=== PATIENT | male | born 1930 | race Asian ===

== ENCOUNTER 2017-08-15 09:24 | Inpatient (IN) | payer OTHER ==
[~2017-08-15] VITALS: Ht 152.4 cm; Wt 61.3 kg
[~2017-08-15 09:24] MED LIST: CARVEDILOL6.25 M1 PO; CLEOCIN HCL300 MG PO; CLINDAMYCIN HC300 MG PO; COR3 PO; COZ25 PO; DUONEB HHN; ECO81 PO; FERROUS SULFAT325 M2 PO; GLIPIZIDE2.5 M1 PO; GLU500 PO; GLUCOTROL5 MG PO; K10 PO; L40 PO; LAC PO; LANTUS SOLOS100 U/M1 SC; LEVAQUIN750 MG PO; LEVEMIR100 U/M1 SC; NOR5 PO; WELCHOL625 MG PO; ZOC20 PO
[2017-08-15 09:52] VITALS: Ht 152.4 cm; Wt 61.3 kg
[2017-08-15 10:29] LABS: BASOPHIL % 0.1 % (0-2); PLATELET COUNT 218 x10^3mcL (130-400)
[2017-08-15 10:32] LABS: RED CELL DISTRIBUTION WIDTH 16.2 % (11.5-14.5)
[2017-08-15 10:38] LABS: CARBON DIOXIDE 20.4 mmol/L (21-32); CHLORIDE SERUM 104 mmol/L (98-107); CREATININE SERUM 1.6 mg/dL (0.7-1.3); GLUCOSE SERUM 86 mg/dL (74-106); POTASSIUM SERUM 4.5 mmol/L (3.5-5.1); SODIUM SERUM 136 mmol/L (136-145)
[2017-08-15 10:43] LABS: ALKALINE PHOSPHATASE 79 U/L (46-116); ALT/SGPT 37 U/L (16-63); AST/SGOT 24 U/L (15-37); BILIRUBIN TOTAL 0.3 mg/dL (0.20-1.00); TOTAL PROTEIN, SERUM 7.3 g/dL (6.4-8.2)
[2017-08-15 10:44] LABS: ALBUMIN 2.9 g/dL (3.4-5.0)
[2017-08-15 13:02] LABS: T3 TOTAL 0.55 ng/mL
[2017-08-15 13:18] LABS: PHOSPHOROUS 3.1 mg/dL (2.5-4.9)
[2017-08-15 13:29] LABS: CHOLESTEROL/HDL RATIO 2.6
[2017-08-15 13:31] LABS: FREE T4 1.15 ng/dL (0.76-1.46)
[2017-08-15 13:37] LABS: FREE THYROXINE INDEX 1.6 ug/dL (1.4-4.5); T4(THYROXINE) 4.2 ug/dL (4.7-13.3)
[2017-08-15 13:55] VITALS: BP 115/59
[2017-08-15 17:50] VITALS: BP 107/49
[2017-08-15 18:24] VITALS: BP 115/59
[2017-08-15 21:05] VITALS: BP 101/43
[2017-08-16 06:21] VITALS: BP 96/52
[2017-08-16 06:29] LABS: CALCIUM 7.4 mg/dL (8.5-10.1); CARBON DIOXIDE 19.2 mmol/L (21-32); CHLORIDE SERUM 107 mmol/L (98-107); CREATININE SERUM 1.3 mg/dL (0.7-1.3); GLUCOSE SERUM 77 mg/dL (74-106); MAGNESIUM 1.8 mg/dL (1.8-2.4); PHOSPHOROUS 2.8 mg/dL (2.5-4.9); POTASSIUM SERUM 3.6 mmol/L (3.5-5.1); SODIUM SERUM 139 mmol/L (136-145)
[2017-08-16 06:35] LABS: BASOPHIL % 0.1 % (0-2); PLATELET COUNT 169 x10^3mcL (130-400)
[2017-08-16 06:53] LABS: RED CELL DISTRIBUTION WIDTH 15.9 % (11.5-14.5)
[2017-08-16 10:02] VITALS: BP 108/50
[2017-08-16] MEDS ORDERED: ZOFRAN8 MG PO (14:16)
[2017-08-16 14:27] VITALS: BP 98/47
[2017-08-16 15:35] VITALS: BP 102/57
== END 2017-08-16 17:58 | disposition home health service (06) | DRG 73 ==
LOC: ED 09:24 → DU 11:34
PROVIDERS: Emergency Medicine; Family Medicine Sports Medicine
DX: G90.9 Disorder of the autonomic nervous system, unspecified (principal); N17.0 Acute kidney failure with tubular necrosis; I42.2 Other hypertrophic cardiomyopathy; I10 Essential (primary) hypertension; Z95.1 Presence of aortocoronary bypass graft; E78.00 Pure hypercholesterolemia, unspecified; E86.0 Dehydration; I25.10 Atherosclerotic heart disease of native coronary artery without angina pectoris; G90.8 Other disorders of autonomic nervous system; E11.65 Type 2 diabetes mellitus with hyperglycemia; E11.51 Type 2 diabetes mellitus with diabetic peripheral angiopathy without gangrene; R22.1 Localized swelling, mass and lump, neck; E83.51 Hypocalcemia; I34.1 Nonrheumatic mitral (valve) prolapse; I34.0 Nonrheumatic mitral (valve) insufficiency
CPT/HCPCS: 82962; 83880; 84439; 97110-GP; J1956; J2543; J3490; J7030; J7620; Q0092

== ENCOUNTER 2019-05-10 19:11 | Inpatient (IN) | payer OTHER ==
[~2019-05-10] VITALS: Ht 152.4 cm; Wt 67.3 kg
[~2019-05-10 19:11] MED LIST changes: +ZOFRAN8 MG PO
[2019-05-10 19:19] VITALS: Ht 152.4 cm; Wt 67.3 kg
[2019-05-10 20:07] LABS: BASOPHIL % 0.5 % (0-2); PLATELET COUNT 216 x10^3mcL (130-400); RED CELL DISTRIBUTION WIDTH 14.7 % (11.5-14.5)
[2019-05-10 21:13] LABS: ALKALINE PHOSPHATASE 97 U/L (46-116); ALT/SGPT 32 U/L (16-63); AST/SGOT 31 U/L (15-37); BILIRUBIN TOTAL 0.4 mg/dL (0.20-1.00); CALCIUM 8.7 mg/dL (8.5-10.1); CARBON DIOXIDE 24.3 mmol/L (21-32); CHLORIDE SERUM 104 mmol/L (98-107); CREATININE SERUM 1.3 mg/dL (0.7-1.3); GLUCOSE SERUM 165 mg/dL (74-106); POTASSIUM SERUM 4.5 mmol/L (3.5-5.1); SODIUM SERUM 138 mmol/L (136-145); TOTAL PROTEIN, SERUM 7.8 g/dL (6.4-8.2)
[2019-05-10 21:14] LABS: ALBUMIN 3.3 g/dL (3.4-5.0); CHOLESTEROL 111 mg/dL (<200)
[2019-05-10] MEDS ORDERED: NOR10 PO (23:13)
[2019-05-10] MEDS ORDERED: FUROSEMIDE40 MG PO (23:13)
[2019-05-10] MEDS ORDERED: GOOD SENSE ASPI81 M3 PO (23:14)
[2019-05-10] MEDS ORDERED: KLOR-CON M1010 MEQ PO (23:14)
[2019-05-10] MEDS ORDERED: CARVEDILOL6.25 M1 PO (23:14)
[2019-05-10] MEDS ORDERED: GLUCOTROL5 MG PO (23:14)
[2019-05-10] MEDS ORDERED: METFORMIN HYDR500 M1 PO (23:15)
[2019-05-10] MEDS ORDERED: SIMVASTATIN20 M1 PO (23:15)
[2019-05-10] MEDS ORDERED: WELCHOL625 MG PO (23:15)
[2019-05-10] MEDS ORDERED: LOSARTAN POTASS25 M1 PO (23:15)
[2019-05-10] MEDS ORDERED: PROS INH (23:16)
[2019-05-11 00:48] LABS: UA SPECIFIC GRAVITY 1.015 (1.005-1.035); microscopic required? YES; urine erythrocyte TRACE (NEGATIVE)
[2019-05-11 00:52] LABS: CHOLESTEROL/HDL RATIO 3.5
[2019-05-11 02:24] VITALS: BP 124/47
[2019-05-11 04:33] VITALS: BP 116/55
[2019-05-11 05:00] VITALS: BP 140/63
[2019-05-11 06:25] LABS: T3 TOTAL 0.74 ng/mL
[2019-05-11 06:26] LABS: FREE T4 1.07 ng/dL (0.76-1.46); FREE THYROXINE INDEX 2.4 ug/dL (1.4-4.5); T4(THYROXINE) 6.2 ug/dL (4.7-13.3)
[2019-05-11 06:36] LABS: CALCIUM 8.5 mg/dL (8.5-10.1); CARBON DIOXIDE 29.4 mmol/L (21-32); CHLORIDE SERUM 104 mmol/L (98-107); CREATININE SERUM 1.1 mg/dL (0.7-1.3); GLUCOSE SERUM 68 mg/dL (74-106); MAGNESIUM 1.9 mg/dL (1.8-2.4); PHOSPHOROUS 3.9 mg/dL (2.5-4.9); POTASSIUM SERUM 3.6 mmol/L (3.5-5.1); SODIUM SERUM 142 mmol/L (136-145)
[2019-05-11 06:39] LABS: BASOPHIL % 0.3 % (0-2); PLATELET COUNT 207 x10^3mcL (130-400); RED CELL DISTRIBUTION WIDTH 14.3 % (11.5-14.5)
[2019-05-11 07:53] LABS: AMPHETAMINE QUAL UR NONE DETECTED (See below)
[2019-05-11 09:40] VITALS: BP 127/61
[2019-05-11 16:55] VITALS: BP 106/64
[2019-05-11 20:47] VITALS: BP 115/54
[2019-05-12 05:51] VITALS: BP 110/53
[2019-05-12 06:51] LABS: BASOPHIL % 0.3 % (0-2); PLATELET COUNT 188 x10^3mcL (130-400); RED CELL DISTRIBUTION WIDTH 14.4 % (11.5-14.5)
[2019-05-12 08:39] LABS: CALCIUM 8.5 mg/dL (8.5-10.1); CARBON DIOXIDE 26.4 mmol/L (21-32); CHLORIDE SERUM 103 mmol/L (98-107); CREATININE SERUM 1.2 mg/dL (0.7-1.3); GLUCOSE SERUM 99 mg/dL (74-106); POTASSIUM SERUM 3.8 mmol/L (3.5-5.1); SODIUM SERUM 139 mmol/L (136-145)
[2019-05-12 08:45] VITALS: BP 117/63
[2019-05-12 12:32] VITALS: BP 113/52
[2019-05-12 16:50] VITALS: BP 103/54
[2019-05-12 21:37] VITALS: BP 108/52
[2019-05-13 06:22] VITALS: BP 107/57
[2019-05-13 06:50] LABS: BASOPHIL % 0.5 % (0-2); PLATELET COUNT 229 x10^3mcL (130-400); RED CELL DISTRIBUTION WIDTH 14.3 % (11.5-14.5)
[2019-05-13 07:06] LABS: CALCIUM 8.4 mg/dL (8.5-10.1); CARBON DIOXIDE 28.7 mmol/L (21-32); CHLORIDE SERUM 102 mmol/L (98-107); CREATININE SERUM 1.1 mg/dL (0.7-1.3); GLUCOSE SERUM 130 mg/dL (74-106); PHOSPHOROUS 4.2 mg/dL (2.5-4.9); POTASSIUM SERUM 4.2 mmol/L (3.5-5.1); SODIUM SERUM 138 mmol/L (136-145)
[2019-05-13 09:09] VITALS: BP 105/54
[2019-05-13 11:54] VITALS: BP 124/60
[2019-05-13 16:33] VITALS: BP 134/60
[2019-05-13 18:18] VITALS: BP 134/60
== END 2019-05-13 19:40 | DRG 308 ==
LOC: ED 19:11 → DU 23:48 → MU 23:48 → DU 05-11 01:32 → MU 05-12 10:31
PROVIDERS: Emergency Medicine; ADMIT Internal Medicine
DX: I44.0 Atrioventricular block, first degree (principal); G93.41 Metabolic encephalopathy; E44.0 Moderate protein-calorie malnutrition; D68.69 Other thrombophilia; G90.8 Other disorders of autonomic nervous system; R55 Syncope and collapse; I11.9 Hypertensive heart disease without heart failure; I25.10 Atherosclerotic heart disease of native coronary artery without angina pectoris; I34.1 Nonrheumatic mitral (valve) prolapse; I35.1 Nonrheumatic aortic (valve) insufficiency; I36.1 Nonrheumatic tricuspid (valve) insufficiency; E11.9 Type 2 diabetes mellitus without complications; E78.5 Hyperlipidemia, unspecified; D64.9 Anemia, unspecified; F03.90 Unspecified dementia, unspecified severity, without behavioral disturbance, psychotic disturbance, mood disturbance, and anxiety; R29.6 Repeated falls; Z95.1 Presence of aortocoronary bypass graft; Z79.4 Long term (current) use of insulin; Z68.26 Body mass index [BMI] 26.0-26.9, adult; Z79.84 Long term (current) use of oral hypoglycemic drugs; Z79.82 Long term (current) use of aspirin
CPT/HCPCS: 82962; 83880; 84439; 97110-GP; 97112-GP; 97116-GP; 97530-GP; G0378; G0480; J1815; J7620; Q0092